=== PATIENT | male | born 1945 | race Caucasian/White ===

== ENCOUNTER 2018-04-08 03:54 | Emergency (ER) | payer MEDICARE, BC ==
[~2018-04-08] VITALS: Ht 177.8 cm; Wt 106.5 kg
[2018-04-08 04:58] LABS: MICROSCOPIC AUTO
[2018-04-08 05:09] LABS: CULTURE INDICATED? YES
[2018-04-08 05:15] VITALS: BP 153/96
== END 2018-04-08 05:39 | disposition home or self-care (01) ==
LOC: ED 04:12
DX: N30.01 Acute cystitis with hematuria (principal); N40.1 Benign prostatic hyperplasia with lower urinary tract symptoms; R33.8 Other retention of urine; I10 Essential (primary) hypertension; K21.9 Gastro-esophageal reflux disease without esophagitis
CPT/HCPCS: 51702; 81001; 87086; 99284